=== PATIENT | female | born 1990 | race Caucasian/White ===

== ENCOUNTER 2018-09-05 13:04 | Emergency (ER) | payer MEDICAID ==
[~2018-09-05] VITALS: Ht 154.9 cm; Wt 118.2 kg
[2018-09-05 13:06] VITALS: Ht 154.9 cm; Wt 118.2 kg
[2018-09-05] MEDS ORDERED: VOLTAREN75 MG PO (13:33)
[2018-09-05] MEDS ORDERED: CLEOCIN HCL300 MG PO (13:33)
[2018-09-05 13:51] VITALS: BP 132/75
== END 2018-09-05 13:46 | disposition home or self-care (01) ==
LOC: D.ER 13:04
DX: L03.211 Cellulitis of face (principal)